=== PATIENT | male | born 1960 | race Caucasian/White ===

== ENCOUNTER 2016-03-31 15:16 | Emergency (ER) | payer BC, OTHER ==
[~2016-03-31] VITALS: Ht 175.3 cm; Wt 82.0 kg
[~2016-03-31 15:16] MED LIST: BND25X PO; CLXOPS3 OP; LRT5 PO
[2016-03-31 15:34] VITALS: TEMP 37.3; Ht 175.3 cm; Wt 82.0 kg
[2016-03-31] MEDS ORDERED: CITA20TA9 PO (15:55)
[2016-03-31] MEDS ORDERED: BUSP15TA70 PO (15:55)
--- NOTE | 2016-03-31 15:57 | DIAGNOSTIC IMAGING REPORT ---
RIGHT ANKLE MIN 3 VIEWS ROUTINE CLINICAL HISTORY: Right ankle pain status post trauma COMPARISON: None DISCUSSION: There is an oblique fracture of the distal fibula. The distal fragment is laterally displaced x 5 mm. No tibial fractures are visualized. The ankle mortise appears intact on these nonstress views. There is a small joint effusion. There is a tiny fracture fragment projected just anterior to the distal tibia. IMPRESSION: Mildly displaced oblique fracture of the distal fibula Electronically signed by: Dio Donovan M.D. 03/31/2016 3:55 PM Dictated Date/Time: 03/31/2016 3:53 PM
[2016-03-31] MEDS ORDERED: HYDR-5688 PO (16:06)
[2016-03-31] MEDS ORDERED: HYDROCODONE/ACETAMOPHEN 5/325MG TAB PO ONE (16:15)
[2016-03-31 16:43] VITALS: BP 141/73; PULSE 64; O2SAT 96
--- NOTE | 2016-03-31 19:48 | EMERGENCY ROOM VISIT NOTE ---
ED Visit Note First contact with patient: 15:38 CHIEF COMPLAINT: Right ankle pain. HISTORY OF PRESENT ILLNESS: Mr. Castanon is a 55-year old male who is brought via wheelchair into the ED complaining of right ankle pain. He reports approximately 1.5 hours ago he unloading a pallet with firewood. The portion of the palate he stood on broke and he tripped and rolled his right ankle. Since that time he reports he's been having severe pain over the lateral aspect of the right ankle. He has not been able to ambulate because of the pain. He is currently complaining of constant sharp and throbbing pain over the distal fibula. He rates the pain a 6/10. Pain is nonradiating. Pain increases with weightbearing, plantar flexion, inversion, eversion and palpation. He has not identified any alleviating factors related to the pain. He has not taken any medications for pain prior to arrival at the hospital. He denies any associated hip pain, knee pain, lower leg pain, foot pain, leg weakness/numbness /tingling. Additionally he denies any previous significant injuries or surgeries to the right ankle. REVIEW OF SYSTEMS: As noted above in History of Present Illness. PAST MEDICAL HISTORY: Cervical spine fracture. CURRENT MEDICATIONS: Celexa, BuSpar. ALLERGIES TO MEDICATIONS: Patient denies. SOCIAL HISTORY: Patient is currently employed; he feels safe in his home environment; he denies tobacco use. PHYSICAL EXAM: Vital Signs: Date Time Temp Pulse Resp B/P Pulse Ox O2 Delivery O2 Flow Rate FiO2 03/31/16 16:43 64 16 141/73 96 03/31/16 15:34 37.3 93 17 134/93 98 Room Air General: 55 year old male in mild/moderate distress due to pain, nontoxic- appearing, afebrile and hemodynamically stable. Neurological: Awake, alert, oriented to person place and time. Answering questions appropriately and following commands. Skin: Warm dry and pink. No soft tissue injuries. Right Lower Extremity: No gross jack deformities. No tenderness in the hip or knee. Tenderness over the distal aspect of the fibula with moderate swelling and questionable deformity. No ecchymosis or crepitus. There is also tenderness over the posterior ligaments of the malleolus. Decreased range of motion in all movements due to pain. Unable to test for laxity due to his discomfort and swelling. He was able to wiggle his toes without difficulty. Throughout the foot the skin is pink and warm with brisk capillary refill. Able to distinguish light sensations through all dermatomes of the foot. ED COURSE: Patient is assessed as noted above. Right Ankle X-Rays: Was read by myself and the radiologist showing a mildly displaced distal radius fracture. Patient is given Percocet by mouth and ice for pain, swelling and comfort. Patient is placed in a Ortho-Glass stirrup and is instructed on crutch use. Patient is educated about his condition and instructed on his treatment plan; he verbalizes understanding and agreement with the our plan. CLINICAL IMPRESSION: Right distal fibula fracture. DISPOSITION: Patient is discharged to home in stable condition accompanied by his ; prior to departure he rated his discomfort 5/10. PLAN: Use 600 mg of ibuprofen every 6 hours as needed for pain; take with food and stop for stomach pain or indigestion. 3 hours after ibuprofen use rate your pain: for pain rated 1-3 use 650 mg of acetaminophen for pain rated 4-7 use one [place] tablet for pain rated 8-10 use 2 [place] tablets Use ice on your ankle 5-6 times a day for 30 minutes. While at rest elevate your ankle. Use splint and nonweightbearing crutches until followed up with the orthopedic physician. Follow-up with your orthopedic surgeon for definitive care and treatment. Return to the ED for worsening/uncontrolled pain, uncontrolled swelling, foot/ toe weakness/numbness/tingling or any new/concerning symptoms.
== END 2016-03-31 16:45 | disposition home or self-care (01) ==
LOC: C.EDB 15:17 → C.EDD 16:45
DX: S82.431A Displaced oblique fracture of shaft of right fibula, initial encounter for closed fracture (principal); X50.1XXA Overexertion from prolonged static or awkward postures, initial encounter; Z79.899 Other long term (current) drug therapy

== ENCOUNTER → 2016-04-01 | Outpatient (CLI) | payer OTHER ==
[~2016-04-01] MED LIST changes: +BUSP15TA70 PO; +CITA20TA9 PO; +HYDR-5688 PO
== END | disposition home or self-care (01) ==
LOC: C.CPL 14:35
PROVIDERS: ATTEND Orthopaedic Surgery Sports Medicine
DX: Z01.810 Encounter for preprocedural cardiovascular examination (principal)